=== PATIENT | female | born 1985 | race Caucasian/White ===

== ENCOUNTER → 2019-06-01 | Outpatient (CLI) | payer BC | LOC: LAB.O 11:44 | PROVIDERS: ATTEND General Practice | DX: I10 Essential (primary) hypertension (principal); H53.8 Other visual disturbances ==

== ENCOUNTER → 2019-06-12 | Outpatient (CLI) | payer BC | LOC: LAB.O 11:59 | PROVIDERS: ATTEND General Practice | DX: I10 Essential (primary) hypertension (principal); H53.8 Other visual disturbances ==